=== PATIENT | female | born 1985 | race Caucasian/White ===

== ENCOUNTER 2023-08-23 08:57 | Inpatient (IN) | payer OTHER ==
[~2023-08-23] VITALS: Ht 177.8 cm; Wt 115.7 kg
[2023-08-23] MEDS ORDERED: CARBOPROST 250 MCG/ML AMP IM PRN (09:20)
[2023-08-23] MEDS ORDERED: METHYLERGONOVINE 0.2 MG/ML AMP IM PRN ×2 (09:20→12:15)
[2023-08-23 10:27] LABS: INR 0.88 (0.8-1.2); PARTIAL THROMBOPLASTIN TIME 24.8 secs (22-35.6); PROTHROMBIN TIME 9.3 secs (10.8-13.4)
[2023-08-23 10:28] LABS: BASOPHILS % (AUTO) 0.2 % (0.0-2.0); EOSINOPHILS # (AUTO) 0.1 K/uL (0-0.4); EOSINOPHILS % (AUTO) 0.7 % (0.0-4.0); HEMATOCRIT 27.1 % (36-48); HEMOGLOBIN 9.4 g/dL (12.0-16.0); LYMPHOCYTES # (AUTO) 1.5 K/uL (2.5-16.5); LYMPHOCYTES % (AUTO) 15.1 % (20.5-51.1); MEAN CORPUSCULAR HEMOGLOBIN 30 pg (27-31); MEAN CORPUSCULAR HGB CONC 35 g/dL (33-37); MEAN CORPUSCULAR VOLUME 86.6 fL (80-94); MONOCYTES # (AUTO) 0.5 K/uL (0.8-1.0); MONOCYTES % (AUTO) 5.3 % (1.7-9.3); NEUTROPHILS # (AUTO) 7.9 K/uL (1.8-7.7); NEUTROPHILS % (AUTO) 78.7 % (42.2-75.2); PLATELET COUNT (AUTO) 232 K/uL (140-450); RED BLOOD CELL COUNT(AUTO) 3.13 MIL/uL (4.20-5.40); RED CELL DISTRIBUTION WIDTH 14.4 % (11.6-13.7)
[2023-08-23] MEDS ORDERED: PREN-543 PO (10:47)
[2023-08-23] MEDS: CITRIC ACID/SODIUM CITRATE 30 ML UDC PO SCH (10:49)
[2023-08-23] MEDS: LACTATED RINGERS 1,000 ML IV SCH (10:49)
[2023-08-23 10:59] LABS: APPEARANCE,URINE CLEAR (CLEAR); BILIRUBIN,URINE 1+ (NEGATIVE); BLOOD, URINE NEGATIVE (NEGATIVE); COLOR,URINE YELLOW (YELLOW); LEUKOCYTE ESTERASE ,URINE 2+ (NEGATIVE); NITRITE, URINE NEGATIVE (NEGATIVE); PROTEIN,URINE TRACE (NEGATIVE); UGLUCOSE NEGATIVE (NEGATIVE); UROBILINOGEN,URINE 0.2 EU/dL (0.2 - 1)
[2023-08-23 11:12] LABS: BACTERIA,URINE 2+ /HPF (None Seen); SQUAMOUS EPITHELIAL CELL,UR 4-10 (MOD) /LPF (0-3 (FEW)); WBC,URINE >25 (MANY) /HPF (0-5)
[2023-08-23 11:15] LABS: ICTOTEST NEGATIVE (NEGATIVE)
[2023-08-23 11:16] LABS: ALBUMIN 2.3 g/dL (3.4-5.0); ANION GAP 16.3 (8-16); CALCIUM 8.4 mg/dL (8.5-10.1); CARBON DIOXIDE 23.6 mmol/L (21-32); CREATININE 0.7 mg/dL (0.6-1.3); TOTAL BILIRUBIN 0.2 mg/dL (0.0-1.0); TOTAL PROTEIN, SERUM 5.9 g/dL (6.4-8.2)
[2023-08-23 11:23] LABS: POTASSIUM 2.9 mmol/L (3.5-5.1)
[2023-08-23] MEDS ORDERED: TEMAZEPAM 15 MG CAP PO PRN (12:15)
[2023-08-23] MEDS ORDERED: KETOROLAC 30 MG/ML VIAL IVP PRN (12:15)
[2023-08-23] MEDS ORDERED: MORPHINE PRES FREE 10 MG/10 ML AMP IV ONE (12:17)
[2023-08-23] MEDS ORDERED: KETOROLAC 30 MG/ML VIAL ONE (12:20)
[2023-08-23] MEDS ORDERED: NALBUPHINE 10 MG/ML AMP IVP PRN ×2 (13:00)
[2023-08-23] MEDS ORDERED: ONDANSETRON 4 MG/2 ML VIAL IVP PRN ×2 (13:00)
[2023-08-23] MEDS ORDERED: LACTATED RINGERS 1,000 ML IV SCH (13:00)
[2023-08-23] MEDS ORDERED: BLOOD GLUCOSE MONITORING 1 DEV DEV FS SCH (13:00)
[2023-08-23] MEDS ORDERED: NALOXONE 0.4 MG/ML VIAL IVP PRN ×3 (13:00)
[2023-08-23] MEDS: diphenhydrAMINE 50 MG/ML VIAL IVP PRN (13:15)
[2023-08-23] MEDS: OXYTOCIN/0.9 % SODIUM CHLORIDE 500 ML IV SCH (13:19)
[2023-08-23] MEDS: DOCUSATE SOD/SENNA 50/8.6 MG 1 TAB PO SCH (21:00)
[2023-08-23] MEDS ORDERED: oxyCODONE/APAP 5/325 MG 1 TAB TAB PO PRN (23:00)
[2023-08-24 05:33] LABS: BASOPHILS % (AUTO) 0.1 % (0.0-2.0); EOSINOPHILS % (AUTO) 0.2 % (0.0-4.0); HEMATOCRIT 24.5 % (36-48); HEMOGLOBIN 8.5 g/dL (12.0-16.0); LYMPHOCYTES # (AUTO) 2.2 K/uL (2.5-16.5); LYMPHOCYTES % (AUTO) 14.9 % (20.5-51.1); MEAN CORPUSCULAR HEMOGLOBIN 30 pg (27-31); MEAN CORPUSCULAR HGB CONC 35 g/dL (33-37); MEAN CORPUSCULAR VOLUME 86.2 fL (80-94); MONOCYTES # (AUTO) 0.8 K/uL (0.8-1.0); MONOCYTES % (AUTO) 5.5 % (1.7-9.3); NEUTROPHILS # (AUTO) 11.6 K/uL (1.8-7.7); NEUTROPHILS % (AUTO) 79.3 % (42.2-75.2); PLATELET COUNT (AUTO) 224 K/uL (140-450); RED BLOOD CELL COUNT(AUTO) 2.84 MIL/uL (4.20-5.40); RED CELL DISTRIBUTION WIDTH 14.2 % (11.6-13.7); WHITE BLOOD COUNT (AUTO) 14.6 K/uL (4.8-10.8)
[2023-08-24] MEDS: oxyCODONE/APAP 5/325 MG 1 TAB TAB PO PRN (09:13)
[2023-08-24] MEDS: SIMETHICONE 80 MG TAB.CHEW PO PRN (09:14)
[2023-08-24] MEDS: IBUPROFEN 800 MG TAB PO PRN (21:39)
[2023-08-25] MEDS ORDERED: CAMERA MC ONE (03:22)
== END 2023-08-25 14:15 | disposition home or self-care (01) | DRG 788 ==
LOC: MLD 08:57 → OBSVTOIN 11:31 → MFCC 14:00
PROVIDERS: ADMIT Obstetrics & Gynecology; ATTEND Obstetrics & Gynecology
PROC: 10D00Z1 Extraction of Products of Conception, Low, Open Approach (ICD-10-PCS; principal; 2023-08-23 13:00)
PROC: 3E0234Z Introduction of Serum, Toxoid and Vaccine into Muscle, Percutaneous Approach (ICD-10-PCS; 2023-08-24)
DX: O34.211 Maternal care for low transverse scar from previous cesarean delivery (principal); Z3A.39 39 weeks gestation of pregnancy; Z37.0 Single live birth
CPT/HCPCS: 36415; 80053; 81001; 85025; 85610; 85730; 86592; 86762; 86850; 86886; 86900; 86901; 87086; J0690; J1100; J1200; J1885; J2270; J2405; J2590; J2765; J2790; J7060